=== PATIENT | male | born 2000 | race Caucasian/White ===

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

== ENCOUNTER 2019-02-18 14:23 | Emergency (ER) | payer BC, MEDICAID, SELFPAY ==
[~2019-02-18] VITALS: Ht 182.9 cm; Wt 89.3 kg
--- NOTE | 2019-02-18 15:08 | REP ---
RIGHT 4TH DIGIT: Four views of right 4th digit are performed. Comminuted fracture of the distal phalanx is noted. There is a fracture at the base at the distal phalanx posteriorly as well as at the distal end of the distal phalanx. There is mild distraction of the fracture fragments. There is no other evidence of acute fracture or dislocation. Electronically Signed by Lisandro Augustine MD 02/18/2019 05:15 P
[2019-02-18] MEDS ORDERED: ACETAMINOPHEN TAB 650MG DOSE (2X325MG) PO ONE (16:45)
[2019-02-18] MEDS ORDERED: PERCOCET 5MG/325MG TAB PO ONE ×2 (16:45→18:00)
[2019-02-18] MEDS ORDERED: ceFAZolin SOD 2 GM in IV 1 EA IV ONE (17:30)
[2019-02-18] MEDS ORDERED: PERC5TAB12 PO (19:55)
[2019-02-18] MEDS ORDERED: KEFL500C17 PO (19:55)
[2019-02-18 20:34] VITALS: BP 121/79
== END 2019-02-18 20:35 | disposition home or self-care (01) ==
LOC: M ED 14:23
DX: S62.634B Displaced fracture of distal phalanx of right ring finger, initial encounter for open fracture (principal); W23.1XXA Caught, crushed, jammed, or pinched between stationary objects, initial encounter; Y92.9 Unspecified place or not applicable; Y93.9 Activity, unspecified; Y99.0 Civilian activity done for income or pay; Z79.899 Other long term (current) drug therapy
CPT/HCPCS: 73140; 96365; 99284; J0690

== ENCOUNTER → 2020-09-20 | Outpatient (REF) | payer OTHER, MEDICAID ==
[~2020-09-20] MED LIST: KEFL500C17 PO; PERC5TAB12 PO
== END ==
LOC: M LAB REF 11:06
PROVIDERS: ATTEND Physician Assistant
DX: J02.9 Acute pharyngitis, unspecified (principal)

== ENCOUNTER → 2021-10-20 | Outpatient (REF) | payer OTHER | LOC: M LAB REF 20:30 | PROVIDERS: ATTEND Physician Assistant Medical | DX: R50.9 Fever, unspecified (principal) ==